=== PATIENT | female | born 1950 | race Caucasian/White ===

== ENCOUNTER → 2016-11-09 | Outpatient (CLI) | payer BC ==
[~2016-11-09] MED LIST: CIPRO DPS500 MG PO; COMPOUND PO; CYMBALTA60 MG PO; KLOR-CON M2020 ME1 PO; NORCO 5-325 TA1 EACH PO; OMNICEF DPS300 MG PO; PEPCID DPS20 MG PO; PROGRAF0.5 MG PO; RAPAMUNE0.5 MG PO; SOD BICARB TAB650 MG PO; SURFAK DPS240 MG PO; THERA1 EACH PO; TYLENOL DPS325 MG PO; ULTRAM DPS50 MG PO; ZOCOR DPS20 MG PO; ZOCOR20 MG PO; ZOVIRAX400 MG PO
== END | disposition home or self-care (01) ==
LOC: PTH.S 11-08 12:30
DX: Z48.288 Encounter for aftercare following multiple organ transplant (principal); Z94.83 Pancreas transplant status; Z94.0 Kidney transplant status; Z79.899 Other long term (current) drug therapy